=== PATIENT | male | born 1985 | race Caucasian/White ===

== ENCOUNTER 2017-05-28 20:40 | Emergency (ER) | payer OTHER ==
[~2017-05-28] VITALS: Ht 185.4 cm; Wt 99.8 kg
[~2017-05-28 20:40] MED LIST: KEFLEX500 MG PO
== END 2017-05-28 21:45 | disposition home or self-care (01) ==
LOC: ED 20:40
DX: S30.860A Insect bite (nonvenomous) of lower back and pelvis, initial encounter (principal); F17.200 Nicotine dependence, unspecified, uncomplicated; W57.XXXA Bitten or stung by nonvenomous insect and other nonvenomous arthropods, initial encounter; Y93.89 Activity, other specified; Y92.89 Other specified places as the place of occurrence of the external cause; Y99.9 Unspecified external cause status

== ENCOUNTER 2021-06-14 19:52 | Emergency (ER) | payer BC ==
[~2021-06-14] VITALS: Ht 182.8 cm; Wt 90.7 kg
[2021-06-14 22:38] LABS: MEAN CELL VOLUME 81.9 fl (80.0-94.0); MEAN CORPUSCULAR HGB CONC 34.2 g/dl (33.0-37.0); MEAN PLATELET VOLUME 10.3 fl (9.6-12.3); PLATELET COUNT AUTOMATED 230 10*3/uL (130-400); RED BLOOD COUNT 5.86 10*6/uL (4.50-5.90); RED CELL DISTRI WIDTH 12.2 % (0-14.5)
[2021-06-14 22:54] LABS: ALBUMIN 3.3 gm/dl (3.1-4.5); ALKALINE PHOSPHATASE 95 U/L (45-117); BUN 15 mg/dl (7-24); CHLORIDE 103 mmol/L (98-107); CREATININE 1.02 mg/dL (0.70-1.30); SGOT/AST 39 IU/L (3-35); SGPT/ALT 64 U/L (12-78); SODIUM 136 mmol/L (136-145); TOTAL PROTEIN 7.7 gm/dL (6.4-8.2)
[2021-06-14 22:58] LABS: ATYPICAL LYMPHS 7 % (0-0); BASOPHILS 2 % (0-1); PLATELET SUFFICIENCY NORMAL (NORMAL); TOTAL CELLS COUNTED 100 #CELLS
== END 2021-06-15 00:42 | disposition home or self-care (01) ==
LOC: ED 19:52
PROVIDERS: Emergency Medicine
DX: U07.1 COVID-19 (principal)

== ENCOUNTER 2021-12-12 16:55 | Emergency (ER) | payer BC ==
[2021-12-12] MEDS ORDERED: AUGMENTIN 875-875 MG PO (18:01)
[2021-12-12] MEDS ORDERED: Motrin,Rufen800 MG PO (18:02)
== END 2021-12-12 18:12 | disposition home or self-care (01) ==
LOC: ED 16:55
DX: S01.511A Laceration without foreign body of lip, initial encounter (principal); Y08.89XA Assault by other specified means, initial encounter; Y93.89 Activity, other specified; Y92.89 Other specified places as the place of occurrence of the external cause; Y99.8 Other external cause status